=== PATIENT | male | born 1985 | race Caucasian/White ===

== ENCOUNTER 2023-02-03 22:31 | Emergency (ER) | payer OTHER, SELFPAY ==
[2023-02-03 22:41] VITALS: BP 122/85; PULSE 112; RESP 16; TEMP 36.2; O2SAT 99
--- NOTE | 2023-02-03 22:44 | CRLHL7_ITS ---
For Patients: As a result of the Century Cures Act, medical imaging exams and procedure reports are released immediately into your electronic medical record. You may view this report before your referring provider. If you have questions, please contact your health care provider. INDICATION: Syncope TECHNIQUE: CT head without contrast. COMPARISON: None. FINDINGS: No intracranial hemorrhage. No discrete mass or mass effect. There is no midline shift. The basilar cisterns are patent. No hydrocephalus. The lin-white matter interface is otherwise preserved. No acute osseous abnormality. No extracalvarial soft tissue abnormality. The mastoid air cells are clear. The paranasal sinuses are well-aerated. The visualized portions of the orbits and globes are unremarkable. IMPRESSION: No acute intracranial process per unenhanced head CT. Please note that all CT scans at this facility use dose modulation, iterative reconstruction, and/or weight-based dosing when appropriate to reduce radiation dose to as low as reasonably achievable. Dictated by Lobo Lion MD @ 02/03/2023 11:42:57 PM (Electronically Signed)
--- NOTE | 2023-02-03 22:44 | CRLHL7_ITS ---
For Patients: As a result of the Cures Act, medical imaging exams and procedure reports are released immediately into your electronic medical record. You may view this report before your referring provider. If you have questions, please contact your health care provider. INDICATION: Syncope. TECHNIQUE: CT cervical spine without contrast. COMPARISON: None. FINDINGS: No acute fracture. No listhesis. Bony mineralization is age appropriate. No prevertebral soft tissue hematoma or swelling. No soft tissue abnormality is identified. No pathologically enlarged lymph nodes. Thyroid is normal. Lung apices are clear. IMPRESSION: Unremarkable cervical spine CT. Please note that all CT scans at this facility use dose modulation, iterative reconstruction, and/or weight-based dosing when appropriate to reduce radiation dose to as low as reasonably achievable. Dictated by Lobo Lion MD @ 02/03/2023 11:45:25 PM (Electronically Signed)
--- NOTE | 2023-02-03 22:44 | CRLHL7_ITS ---
For Patients: As a result of the Century Cures Act, medical imaging exams and procedure reports are released immediately into your electronic medical record. You may view this report before your referring provider. If you have questions, please contact your health care provider. INDICATION: Syncope TECHNIQUE: Chest 1 views. COMPARISON: None. FINDINGS: Lungs: Normal lung volume. No consolidation. The tracheobronchial tree and hilar structures are unremarkable. Pleura: No pleural effusion or pneumothorax. Heart and Mediastinum: Normal heart size. The great vessels of the thorax are unremarkable. Bones: No acute displaced osseous process. IMPRESSION: No consolidation. Dictated by Lobo Lion MD @ 02/03/2023 11:47:28 PM (Electronically Signed)
--- NOTE | 2023-02-03 22:48 | ED_ITS ---
HPI - Head Injury General Chief complaint: Head Injury/Pain Stated complaint: Fainted Time Seen by Provider: 02/03/23 22:44 History of Present Illness HPI Narrative: Pt is a 37 year old gentleman with a history of syncope who presents 2 hours after passing out while urinating standing up. Pt apears to have hit the back of his head. He did lose consciousness. Pt's found him down and helped him up. Pt has mild pain in his occiput but no swelling, echymosis or skin breakdown. No seizure activity. No other recent seizures but he has passed out many times in the past when exposed to blood. Pt has no recall of the events other than lightheadedness prior to the syncope. EKG upon arrival shows mild sinus tachycardia with a rate of 107 and no other findings. Related Data Home Medications Medication Instructions Recorded Confirmed No Known Home Medications 02/03/23 02/03/23 Allergies Allergy/AdvReac Type Severity Reaction Status Date / Time No Known Drug Allergies Allergy Verified 02/03/23 22:40 Review of Systems Status of ROS: Reports: 10 or more systems reviewed and unremarkable except as noted in History and below Exam Narrative: Exam Narrative: EXAM GENERAL: Patient appears comfortable and well. EYES: No scleral icterus. THYROID: no thyroid nodules or thyromegaly. LYMPH: No supraclavicular or cervical lymphadenopathy. SKIN: Visible skin seen during exam normal or with benign process only. EXT: No dependent lower extremity pedal edema. HEART: Regular rate and rhythm with no murmurs, rubs, or gallops. LUNGS: Clear to auscultation bilaterally with no crackles or wheezes. ABD: Soft, non tender, non distended. PSYCH: Good eye contact, speech is not pressured. Const: Vital Signs, click to edit/add: Vital Signs - 24 hr 02/03/23 22:41 Temperature 97.2 F L Pulse Rate [Right Pulse Oximeter] 112 H Respiratory Rate 16 Blood Pressure [Le ft Upper Arm] 122/85 Pulse Oximetry 99 Oxygen Delivery Me thod Room Air Course Course Hospital Course: Pt seen and examined. 1 liter of normal saline given. CBC, BMP, Troponin, D dimerr, chest x ray, CT of head and neck ordered. Reevaluation(s) Reevaluation #1: Pt resting comfortably. Time: 23:36 Vital Signs Vital signs: Initial Vital Signs Temperature 97.2 F L 02/03/23 22:41 Temperature Source Temporal Artery Scan 02/03/23 22:41 Pulse Rate 112 H 02/03/23 22:41 Pulse Rhythm Regular 02/03/23 22:41 Respiratory Rate 16 02/03/23 22:41 Blood Pressure 122/85 02/03/23 22:41 Blood Pressure Mean 97 02/03/23 22:41 Blood Pressure Position Semi-Fowlers 02/03/23 22:41 Pulse Oximetry 99 02/03/23 22:41 Oxygen Delivery Method Room Air 02/03/23 22:41 Vital Signs Temperature 97.2 F L 02/03/23 22:41 Pulse Rate 112 H 02/03/23 22:41 Respiratory Rate 16 02/03/23 22:41 Blood Pressure 122/85 02/03/23 22:41 Pulse Oximetry 99 02/03/23 22:41 Oxygen Delivery Method Room Air 02/03/23 22:41 Temperature 97.2 F L 02/03/23 22:41 Pulse Rate 112 H 02/03/23 22:41 Respiratory Rate 16 02/03/23 22:41 Blood Pressure 122/85 02/03/23 22:41 Pulse Oximetry 99 02/03/23 22:41 Oxygen Delivery Method Room Air 02/03/23 22:41 MDM - Head Injury MDM Narrative Medical decision making narrative: Pt is a 37 year old with a history of syncope who presents with micturition syncope. Pt did lose consciousness and hit his head. Pt had an unremarkable head and cervical spine CT as well as an unremarkable chest x ray. Pt's labs in cluding cbc, bmp, d dimer, troponin and chest x ray unremarkable upon my review. Pt has evidence of concussion with memory loss and was recommended to follow up closely with PCP. Pt will also follow up with PCP about recurrent syncope as I would recommend an echocardiogram with possible Holter monitor as well. Differential Diagnosis Differential diagnosis: Likely concussion without loss of consciousness, epidural hematoma, closed head injury, subarachnoid hematoma, postconcussion syndrome, subdural hematoma and concussion with loss of consciousness Lab Data Labs: Lab Results 02/03/23 02/03/23 Range/Units 20:40 22:44 WBC 7.51 (4.50-11.00) K/uL RBC 4.75 (4.30-5.90) m/uL Hgb 14.3 (13.5-17.5) gm/dL Hct 41.5 (37.0-53.0) % MCV 87 (80-100) fL MCH 30 (26-34) pg MCHC 35 (32-36) gm/dL RDW Coeff of Melinda 12.3 (11.5-15.5) % Plt Count 242 (140-440) K/uL Neut % (Auto) 45.3 (42.0-72.0) % Lymph % (Auto) 45.1 H (20-44) % Rock % (Auto) 6.9 (0.0-11.0) % Eos % (Auto) 1.7 (0.0-7.0) % Baso % (Auto) 0.3 (0.0-3.0) % Neut # (Auto) 3.40 (1.7-7.0) K/uL Lymph # (Auto) 3.40 H (0.90-2.90) K/uL Rock # (Auto) 0.50 (0.00-0.90) K/UL Eos # (Auto) 0.13 (0.00-0.50) K/uL Baso # (Auto) 0.02 (0.00-0.30) K/uL D-Dimer Quant (PE/DVT) < 0.27 (0.00-0.50) ug/ml Sodium 138 (135-149) mmol/L Potassium 3.1 L (3.6-5.1) mmol/L Chloride 102 (96-114) mmol/L Carbon Dioxide 26 (20-32) mmol/L BUN 14 (5-24) mg/dL Creatinine 1.0 (0.5-1.5) mg/dL Estimated GFR 100 ml/min Glucose 110 (60-115) mg/dL Calcium 8.8 (8.4-10.6) mg/dL Troponin I < 0.01 L (0.01-0.04) ng/mL Discharge Plan Discharge Clinical Impression: Syncope Patient Disposition: Home, Self-Care Condition: Stable Instructions: Syncope (ED) Additional Instructions: Hydration Avoid head injury Follow up with PCP next week. Activity Level: No Restrictions Discharge Diet: Regular Prescriptions: No Action No Known Home Medications Stand Alone Forms: [employer] Info Instructions
[2023-02-03 22:55] LABS: Basophils Absolute Auto 0.02 K/uL (0.00-0.30); Basophils Percent Auto 0.3 % (0.0-3.0); Eosinophils Absolute Auto 0.13 K/uL (0.00-0.50); Eosinophils Percent Auto 1.7 % (0.0-7.0); Hematocrit 41.5 % (37.0-53.0); Hemoglobin* 14.3 gm/dL (13.5-17.5); Immature Granulocytes Abs Auto 0.05 K/uL (0.00-0.30); Immature Granulocytes Pct Auto 0.7 %; Lymphocytes Percent Auto 45.1 % (20-44); Mean Corpuscular HGB Conc 35 gm/dL (32-36); Mean Corpuscular Hemoglobin 30 pg (26-34); Mean Corpuscular Volume 87 fL (80-100); Monocytes Percent Auto 6.9 % (0.0-11.0); Neutrophils Percent Auto 45.3 % (42.0-72.0); Platelet Count* 242 K/uL (140-440); RDW Coefficient of Variation % 12.3 % (11.5-15.5); Red Blood Count 4.75 m/uL (4.30-5.90); White Blood Count* 7.51 K/uL (4.50-11.00)
[2023-02-03] MEDS: 0.9 % SODIUM CHLORIDE 1000 ml 1,000 ML IV (22:55)
[2023-02-03 22:58] LABS: Slide Review Reflex No
[2023-02-03 23:07] LABS: Chloride* 102 mmol/L (96-114); Potassium* 3.1 mmol/L (3.6-5.1); Sodium* 138 mmol/L (135-149)
[2023-02-03 23:10] LABS: Blood Urea Nitrogen* 14 mg/dL (5-24); Carbon Dioxide* 26 mmol/L (20-32); Estimated Glomerular Filt Rate 100 ml/min; Glucose* 110 mg/dL (60-115)
[2023-02-03 23:11] LABS: Calcium* 8.8 mg/dL (8.4-10.6)
[2023-02-03 23:30] LABS: D Dimer Quantitative* < 0.27 ug/ml (0.00-0.50)
[2023-02-03 23:30] LABS: Troponin I* < 0.01 ng/mL (0.01-0.04)
== END 2023-02-04 00:09 | disposition home or self-care (01) ==
PROVIDERS: Emergency Provider Internal Medicine
DX: R55 Syncope and collapse (principal); S09.90XA Unspecified injury of head, initial encounter
CPT/HCPCS: 36415; 70450; 71045; 72125; 80048; 81003; 84484; 85025; 85379; 99283; 99284; J7030